=== PATIENT | male | born 1955 | race Two or more races ===

== ENCOUNTER 2019-05-30 09:22 | Inpatient (IN) ==
[2019-05-30] MEDS ORDERED: ONDANSETRON 4 MG/2 ML VIAL IV ONE (09:58)
[2019-05-30] MEDS ORDERED: ACETAMINOPHEN 325 MG TABLET PO ONE (09:58)
[2019-05-30] MEDS ORDERED: SODIUM CHLORIDE 0.9% 1,000 ML IV STA ×2 (09:58→10:03)
[2019-05-30] MEDS ORDERED: ALBUTEROL/IPRATROPIUM 3 ML NEB RESP TX STA (09:58)
[2019-05-30] MEDS ORDERED: cefTRIAXone 1,000 MG in SODIUM CHLORIDE 0.9% 100 ML IV STA (10:40)
[2019-05-30] MEDS ORDERED: AZITHROMYCIN INJ 500 MG in SODIUM CHLORIDE 0.9% 250 ML IV STA (10:40)
[2019-05-30 10:56] LABS: Basophils % 0.2 % (0.0-0.8); Eosinophils % 0.2 % (0.00-10.9); Hemoglobin 14.3 GM/DL (14.0-18.0); Immature Granulocytes % 0.8 %; Immature Granulocytes Absolute 0.04 #; Lymphocytes # 0.9 10*3/uL (1.4-4.0); Lymphocytes % 17.7 % (21.2-54.2); Mean Corpuscular HGB Conc 32.5 GM/DL (32-36); Mean Corpuscular Volume 85.6 FL (87-102); Mean Platelet Volume 9.4 FL (9.6-12.0); Monocytes % 10.4 % (1.7-12.7); Neutrophils % 70.7 % (38.7-73.9); Platelet Count 232 T/CUMM (130-400); Red Blood Count 5.14 MC/CUMM (3.8-5.5); Red Cell Distribution Width 12.8 % (9.3-17.3); White Blood Count 5.2 T/CUMM (4-12)
[2019-05-30 11:05] LABS: PT Patient Result 10.8 SECS (9.8-11.9)
[2019-05-30 11:29] LABS: Alanine Aminotransferase 36 U/L (16-61); Albumin 2.8 G/DL (3.4-5.0); Alkaline Phosphatase 42 U/L (45-117); Aspartate Amino Transferase 34 U/L (0-37); Blood Urea Nitrogen 15 MG/DL (7-18); Estimated Glom Filtration Rate 99 ML/MIN; Glucose 125 MG/DL (74-106); Total Protein 7.6 G/DL (6.4-8.3); Troponin I < 0.015 NG/ML (0.00-0.045)
[2019-05-30] MEDS ORDERED: ONDANSETRON 4 MG/2 ML VIAL IV PRN (13:02)
[2019-05-30 14:09] LABS: ABG Base Excess -0.7 MMOL/L (-2.5-2.5); ABG Oxygen Saturation 94.2 % (95-100); ABG PCO2 35.3 MM HG (35-48); ABG PH 7.432 (7.35-7.45); ABG PO2 71.6 MM HG (80-95); ABG TCO2 24.1 MMOL/L (23-27)
[2019-05-30] MEDS ORDERED: AZITHROMYCIN 250 MG TABLET PO ONE (15:12)
[2019-05-30] MEDS ORDERED: PNEUMOCOCCAL VACCINE (13 VALENT) 0.5 ML SYRINGE IM ONE (15:29)
[2019-05-30] MEDS ORDERED: BICILLIN LA 1,200,000 UNIT/2 ML SYRINGE IM STA (16:16)
[2019-05-30] MEDS ORDERED: ACETAMINOPHEN 500 MG TABLET PO ONE (16:16)
[2019-05-30] MEDS: LACTATED RINGERS 1,000 ML IV SCH (17:32)
[2019-05-30] MEDS: AMOXICILLIN/CLAV 875 MG TABLET PO SCH (21:25)
[2019-05-30] MEDS: ENOXAPARIN 40 MG/0.4 ML SYRINGE SUBCUT SCH (21:25)
[2019-05-31] MEDS ORDERED: ASPIRIN CHEW 81 MG TABLET PO ONE (00:07)
[2019-05-31] MEDS ORDERED: MORPHINE 4 MG/1 ML VIAL IV PRN (00:07)
[2019-05-31] MEDS ORDERED: NITROGLYCERIN SL 0.4 MG TABLET SL PRN (00:07)
[2019-05-31] MEDS ORDERED: VECURONIUM 10 MG VIAL IV ONE (00:32)
[2019-05-31] MEDS ORDERED: ETOMIDATE 20 MG/10 ML VIAL IV ONE (00:32)
[2019-05-31 00:50] LABS: Basophils % 0.1 % (0.0-0.8); Eosinophils # 0.1 10*3/uL (0.0-0.87); Eosinophils % 0.8 % (0.00-10.9); Hematocrit 46.3 VOL% (42.0-52.0); Hemoglobin 14.9 GM/DL (14.0-18.0); Immature Granulocytes % 0.6 %; Immature Granulocytes Absolute 0.05 #; Lymphocytes # 1.7 10*3/uL (1.4-4.0); Lymphocytes % 22.2 % (21.2-54.2); Mean Corpuscular HGB Conc 32.2 GM/DL (32-36); Mean Corpuscular Volume 86.1 FL (87-102); Mean Platelet Volume 9.9 FL (9.6-12.0); Monocytes % 5.1 % (1.7-12.7); Neutrophils % 71.2 % (38.7-73.9); Platelet Count 277 T/CUMM (130-400); Red Blood Count 5.38 MC/CUMM (3.8-5.5); Red Cell Distribution Width 12.9 % (9.3-17.3); White Blood Count 7.8 T/CUMM (4-12)
[2019-05-31 00:56] LABS: Albumin 2.9 G/DL (3.4-5.0); Bilirubin,Total 0.4 MG/DL (0.2-1.0); Calcium 8.2 MG/DL (8.5-10.1); Osmolality,Calculated 275.8 MOS/KG (273-304); Total Protein 8.3 G/DL (6.4-8.3)
[2019-05-31] MEDS: ACETAMINOPHEN 325 MG TABLET PO PRN ×3 (00:58→21:07)
[2019-05-31 01:14] LABS: Apearance,Urine Slightly Hazy (Clear); Bilirubin,Urine Negative (Negative); Blood, Urine Negative (Negative); Glucose,Urine (UA) 50 mg/dL (Negative); Hyaline Casts,Urine 9 /LPF (0-3); Ketones,Urine Negative (Negative); Mucus,Urine Many /LPF (Occasional); Nitrite,Urine Negative (Negative); Protein,Urine 30 MG/DL; RBC,Urine 2 /HPF (0-4); Urine Color Amber (Yellow); WBC,Urine 7 /HPF (0-6)
[2019-05-31 04:17] LABS: ABG Base Excess -0.2 MMOL/L (-2.5-2.5); ABG HCO3 23.9 MMOL/L (20-26); ABG Oxygen Saturation 93.3 % (95-100); ABG PCO2 37.1 MM HG (35-48); ABG PH 7.426 (7.35-7.45); ABG PO2 66.3 MM HG (80-95); Allen Test Positive
[2019-05-31 06:11] LABS: Basophils % 0.1 % (0.0-0.8); Eosinophils % 0.3 % (0.00-10.9); Hematocrit 41.4 VOL% (42.0-52.0); Hemoglobin 13.1 GM/DL (14.0-18.0); Immature Granulocytes % 0.7 %; Immature Granulocytes Absolute 0.05 #; Lymphocytes # 1.2 10*3/uL (1.4-4.0); Lymphocytes % 17.3 % (21.2-54.2); Mean Corpuscular HGB Conc 31.6 GM/DL (32-36); Mean Corpuscular Volume 86.1 FL (87-102); Mean Platelet Volume 9.5 FL (9.6-12.0); Monocytes % 5.7 % (1.7-12.7); Neutrophils % 75.9 % (38.7-73.9); Platelet Count 244 T/CUMM (130-400); Red Blood Count 4.81 MC/CUMM (3.8-5.5); Red Cell Distribution Width 12.8 % (9.3-17.3); White Blood Count 7.2 T/CUMM (4-12)
[2019-05-31 06:41] LABS: Atypical Lymphocytes Few; Band Neutrophils 1 % (0-10); Hypochromasia 1+; Lymphocytes 16 % (20-55); Reactive Lymphocytes Few; Segmented Neutrophils 78 % (50-85); Total Cells Counted 100
[2019-05-31 06:42] LABS: Platelet Estimate Normal
[2019-05-31 06:59] LABS: Alanine Aminotransferase 34 U/L (16-61); Albumin 2.4 G/DL (3.4-5.0); Alkaline Phosphatase 38 U/L (45-117); Aspartate Amino Transferase 39 U/L (0-37); Bilirubin,Total < 0.39 MG/DL (0.2-1.0); Blood Urea Nitrogen 14 MG/DL (7-18); Calcium 7.9 MG/DL (8.5-10.1); Estimated Glom Filtration Rate 107 ML/MIN; Glucose 109 MG/DL (74-106); Osmolality,Calculated 276.7 MOS/KG (273-304); Total Protein 6.8 G/DL (6.4-8.3)
[2019-05-31] MEDS: LACTATED RINGERS 1,000 ML IV SCH (07:49)
[2019-05-31] MEDS: AMOXICILLIN/CLAV 875 MG TABLET PO SCH (08:21)
[2019-05-31] MEDS ORDERED: AZITHROMYCIN 250 MG TABLET PO SCH (09:00)
[2019-05-31] MEDS ORDERED: FUROSEMIDE 40 MG/4 ML VIAL IV ONE (14:57)
[2019-05-31] MEDS ORDERED: POTASSIUM CHLORIDE 20 MEQ TABLET PO ONE (15:02)
[2019-05-31] MEDS: AZITHROMYCIN 250 MG TABLET PO SCH (15:31)
[2019-05-31] MEDS: HYDROXYCHLOROQUINE 200 MG TABLET PO SCH (17:47)
[2019-05-31] MEDS: ZINC SULFATE 220 MG CAPSULE PO SCH (17:47)
[2019-05-31] MEDS: cefTRIAXone 1,000 MG in SYRINGE 1 EACH IV SCH (17:48)
[2019-05-31] MEDS: ENOXAPARIN 40 MG/0.4 ML SYRINGE SUBCUT SCH (21:07)
[2019-06-01 04:29] LABS: ABG Base Excess 3.5 MMOL/L (-2.5-2.5); ABG HCO3 27.4 MMOL/L (20-26); ABG PCO2 40.7 MM HG (35-48); ABG PH 7.444 (7.35-7.45); ABG PO2 64.4 MM HG (80-95)
[2019-06-01 05:16] LABS: Eosinophils % 0.3 % (0.00-10.9); Hematocrit 42.9 VOL% (42.0-52.0); Immature Granulocytes % 0.6 %; Immature Granulocytes Absolute 0.04 #; Lymphocytes # 1.5 10*3/uL (1.4-4.0); Lymphocytes % 22.9 % (21.2-54.2); Mean Corpuscular HGB Conc 32.6 GM/DL (32-36); Mean Corpuscular Volume 84.1 FL (87-102); Mean Platelet Volume 9.9 FL (9.6-12.0); Monocytes % 7.7 % (1.7-12.7); Neutrophils % 68.5 % (38.7-73.9); Platelet Count 289 T/CUMM (130-400); Red Cell Distribution Width 12.8 % (9.3-17.3); White Blood Count 6.5 T/CUMM (4-12)
[2019-06-01 05:18] LABS: Albumin 2.5 G/DL (3.4-5.0); Bilirubin,Total 0.7 MG/DL (0.2-1.0); Calcium 8.3 MG/DL (8.5-10.1); Osmolality,Calculated 275.8 MOS/KG (273-304); Total Protein 7.3 G/DL (6.4-8.3)
[2019-06-01] MEDS: HYDROXYCHLOROQUINE 200 MG TABLET PO SCH ×2 (06:19→19:04)
[2019-06-01] MEDS: AZITHROMYCIN 250 MG TABLET PO SCH (08:55)
[2019-06-01] MEDS: POTASSIUM CHLORIDE 20 MEQ TABLET PO SCH ×2 (12:30→17:00)
[2019-06-01] MEDS: cefTRIAXone 1,000 MG in SYRINGE 1 EACH IV SCH (18:30)
[2019-06-01] MEDS: ENOXAPARIN 40 MG/0.4 ML SYRINGE SUBCUT SCH (20:02)
[2019-06-02] MEDS: HYDROXYCHLOROQUINE 200 MG TABLET PO SCH ×2 (06:06→18:21)
[2019-06-02] MEDS: ZINC SULFATE 220 MG CAPSULE PO SCH (08:05)
[2019-06-02] MEDS: AZITHROMYCIN 250 MG TABLET PO SCH (08:05)
[2019-06-02 12:26] LABS: Calcium 8.8 MG/DL (8.5-10.1); Osmolality,Calculated 275.8 MOS/KG (273-304)
[2019-06-02] MEDS: cefTRIAXone 1,000 MG in SYRINGE 1 EACH IV SCH (18:08)
[2019-06-02] MEDS: ENOXAPARIN 40 MG/0.4 ML SYRINGE SUBCUT SCH (20:05)
[2019-06-03] MEDS: HYDROXYCHLOROQUINE 200 MG TABLET PO SCH ×2 (05:27→18:39)
[2019-06-03] MEDS: AZITHROMYCIN 250 MG TABLET PO SCH (08:38)
[2019-06-03] MEDS: ENOXAPARIN 40 MG/0.4 ML SYRINGE SUBCUT SCH (21:50)
[2019-06-04] MEDS: HYDROXYCHLOROQUINE 200 MG TABLET PO SCH ×2 (05:21→20:44)
[2019-06-04] MEDS: ZINC SULFATE 220 MG CAPSULE PO SCH (08:46)
[2019-06-04] MEDS: ENOXAPARIN 40 MG/0.4 ML SYRINGE SUBCUT SCH (20:44)
[2019-06-05 06:50] LABS: Albumin 2.7 G/DL (3.4-5.0); Bilirubin,Total 0.4 MG/DL (0.2-1.0); Calcium 8.6 MG/DL (8.5-10.1); Osmolality,Calculated 273.8 MOS/KG (273-304); Total Protein 7.8 G/DL (6.4-8.3)
[2019-06-05 07:04] LABS: Basophils # 0.1 10*3/uL (0.0-0.2); Basophils % 0.6 % (0.0-0.8); Eosinophils # 0.3 10*3/uL (0.0-0.87); Eosinophils % 3.4 % (0.00-10.9); Hematocrit 43.2 VOL% (42.0-52.0); Hemoglobin 13.8 GM/DL (14.0-18.0); Immature Granulocytes % 2.5 %; Immature Granulocytes Absolute 0.21 #; Lymphocytes # 2.2 10*3/uL (1.4-4.0); Lymphocytes % 26.4 % (21.2-54.2); Mean Corpuscular HGB Conc 31.9 GM/DL (32-36); Mean Corpuscular Volume 86.1 FL (87-102); Mean Platelet Volume 9.6 FL (9.6-12.0); Neutrophils % 55.1 % (38.7-73.9); Platelet Count 500 T/CUMM (130-400); Red Blood Count 5.02 MC/CUMM (3.8-5.5); Red Cell Distribution Width 12.7 % (9.3-17.3); White Blood Count 8.3 T/CUMM (4-12)
[2019-06-05 07:34] LABS: Atypical Lymphocytes Few; Band Neutrophils 1 % (0-10); Eosinophils 6 % (0-10); Hypochromasia 1+; Lymphocytes 29 % (20-55); Segmented Neutrophils 53 % (50-85); Total Cells Counted 100
[2019-06-05 07:35] LABS: Microcytosis Slight; Platelet Estimate Increased
[2019-06-05] MEDS: HYDROXYCHLOROQUINE 200 MG TABLET PO SCH (08:31)
[2019-06-05] MEDS: ENOXAPARIN 40 MG/0.4 ML SYRINGE SUBCUT SCH (20:50)
[2019-06-06 09:55] LABS: Albumin 3.2 G/DL (3.4-5.0); Bilirubin,Direct 0.13 MG/DL (0.0-0.20); Bilirubin,Indirect 0.5 MG/DL (0.0-1.0); Bilirubin,Total 0.6 MG/DL (0.2-1.0); Total Protein 8.9 G/DL (6.4-8.3)
[2019-06-06 12:22] VITALS: BP 104/59
== END 2019-06-06 13:20 | disposition home or self-care (01) | DRG 177 ==
LOC: N.ED 09:22 → N.EDINP 12:57 → SUATTDRO 12:57 → N.2E 13:57 → N.CVR 05-31 01:42 → N.CC 05-31 12:31 → N.2W 06-03 15:35 → N.CC 06-03 15:36 → N.2W 06-03 16:09
PROVIDERS: ADMIT Family Medicine; ATTEND Internal Medicine